=== PATIENT | female | born 1990 | race American Indian/Alaskan Native ===

== ENCOUNTER 2017-08-27 01:01 | Emergency (ER) | payer OTHER ==
[2017-08-27 01:08] VITALS: TEMP 98.5
[2017-08-27 01:09] VITALS: BMI 35.5
[2017-08-27] MEDS ORDERED: Magnesium Hydroxide Susp 30 ml UD PO STA (01:22)
--- NOTE | 2017-08-27 01:29 | ED PDOC ---
Arrival/HPI - General Chief Complaint: Abdominal Pain Time Seen by Provider: 08/27/17 01:08 Historian: Patient, Other (significant other) - History of Present Illness Narrative History of Present Illness (Text): you were treated in the ED today for having some constipation/difficulty having bowel movement with gas pains with nausea and episode of vomiting without bile/ blood otherwise without any nausea/vomiting/headache/dizziness/difficulty breathing/chest pain/abdomen pain/numbness/tingling/loss of limb function/pain with urination/vaginal bleeding or discharge. You refused sexual disease testing or treatment. Past Medical History - Provider Review Nursing Documentation Reviewed: Yes - Travel History Have you recently traveled outside [place] w/in the past 3 mons?: No - Psychiatric Hx Psychophysiologic Disorder: No Hx Substance Use: No - Surgical History Hx Tonsillectomy: Yes Family/Social History - Physician Review Nursing Documentation Reviewed: Yes Family/Social History: No Known Family HX Smoking Status: Light Smoker < 10 Cigarettes Daily Hx Alcohol Use: Yes Hx Substance Use: No Allergies/Home Meds Allergies/Adverse Reactions: Allergies No Known Allergies Allergy (Verified 02/11/16 11:27) Home Medications: Home Meds Medication Instructions Recorded Confirmed Loratadine [Claritin] 1 tab PO DAILY 02/11/16 02/11/16 Review of Systems - Review of Systems Constitutional: Normal Eyes: Normal ENT: Normal Respiratory: Normal Cardiovascular: Normal Gastrointestinal: Abdominal Pain, Constipation, Nausea, Vomiting Genitourinary Female: Normal Musculoskeletal: Normal Skin: Normal Neurological: Normal Endocrine: Normal Hemo/Lymphatic: Normal Psychiatric: Normal Physical Exam Vital Signs Reviewed: Yes Vital Signs Temp Pulse Resp BP Pulse Ox 08/27/17 01:08 98.5 F 86 18 123/86 100 Temperature: Afebrile Blood Pressure: Hypertensive Pulse: Regular Respiratory Rate: Normal Appearance: Positive for: Well-Appearing, Non-Toxic, Comfortable Pain Distress: None Mental Status: Positive for: Alert and Oriented X 3 - Systems Exam Head: Present: Atraumatic, Normocephalic Pupils: Present: PERRL Extroacular Muscles: Present: EOMI Conjunctiva: Present: Normal Ears: Present: Normal Mouth: Present: Moist Mucous Membranes Pharnyx: Present: Normal Nose (External): Present: Atraumatic Nose (Internal): Present: Normal Inspection Neck: Present: Normal Range of Motion Respiratory/Chest: Present: Clear to Auscultation, Good Air Exchange Cardiovascular: Present: Regular Rate and Rhythm Abdomen: No: Tenderness, Distention, Normal Bowel Sounds, Peritoneal Signs, Rebound, Guarding, McBurney's Point Tender, Rovsing's Sign Present, Hernias, Feeding Tubes, Ostomy Tubes, Mass/Organomegaly, Scars, Other Back: Present: Normal Inspection Upper Extremity: Present: Normal Inspection Lower Extremity: Present: Normal Inspection Neurological: Present: GCS=15, CN II-XII Intact, Speech Normal, Motor Func Grossly Intact Skin: Present: Warm, Normal Color Psychiatric: Present: Alert, Oriented x 3, Normal Insight, Normal Concentration Medical Decision Making ED Course and Treatment: you were treated in the ED today for having some constipation/difficulty having bowel movement with gas pains with nausea and episode of vomiting without bile/ blood otherwise without any nausea/vomiting/headache/dizziness/difficulty breathing/chest pain/abdomen pain/numbness/tingling/loss of limb function/pain with urination/vaginal bleeding or discharge. You refused sexual disease testing or treatment. You were otherwise breathing easily, pink moist lips, smiling and laughing with your significant other, good strength/sensation, alert /oriented, walking easily, clear lungs, no abdomen tenderness on multiple repeat examinations, you refused pelvic and rectal exam at this time and cautioned for complications, no fever temp 98.5, stable heart rate 86, stable breathing rate 18, excellent oxygen level 100% room air, elevated blood pressure 123//86 which we recommend repeat in 2-3 days primary care office to determine further treatment, urine test negative, ECG, milk of magnesia, colace stool softner, lactulose stool softner, zofran anti-nausea, observation done in the ED with improvement, had a long discussion regarding further lab tests/observation in the emergency department which you refused at this time and cautioned to monitor your symptoms for any worsening/complications , counselled to drink lots of fluids and advance diet as tolerated and thus discharged home with significant other. 1. Recommend colace as directed for stool softener. 2. Recommend zofran as directed for nausea control. 3. Recommend follow-up primary care 2-3 days to review symptoms, referral to gastroenterology clinic to review your symptoms. 4. If any worsening pain, fever , chills, nausea, vomiting, difficulty breathing, numbness, loss of limb function, pain with urination or any medical condition then return to the ED. 08/27/17 01:33 08/27/17 02:09 Reassessment Condition: Re-examined, Improved - Medication Orders Current Medication Orders: Discontinued Medications Docusate Sodium (Colace) 100 mg PO STAT STA Stop: 08/27/17 01:23 Last Admin: 08/27/17 01:32 Dose: 100 mg Last Bowel Movement Document 08/27/17 01:32 RG (Rec: 08/27/17 01:32 RG [id number]) Last Bowel Movement Last Bowel Movement 08/26/17 Lactulose (Enulose) 20 gm PO ONCE STA Stop: 08/27/17 01:30 Last Admin: 08/27/17 01:35 Dose: 20 gm Magnesium Hydroxide (Milk Of Magnesia) 30 ml PO STAT STA Stop: 08/27/17 01:23 Last Admin: 08/27/17 01:32 Dose: 30 ml Ondansetron HCl (Zofran Odt) 4 mg PO STAT STA Stop: 08/27/17 01:23 Last Admin: 08/27/17 01:32 Dose: 4 mg Disposition/Present on Arrival - Present on Arrival Any Indicators Present on Arrival: No History of DVT/PE: No History of Uncontrolled Diabetes: No Urinary Catheter: No History of Decub. Ulcer: No History Surgical Site Infection Following: None - Disposition Have Diagnosis and Disposition been Completed?: Yes Diagnosis: Gas pain, Constipation Disposition: HOME/ ROUTINE Disposition Time: 02:11 Patient Plan: Discharge Condition: IMPROVED Discharge Instructions (ExitCare): Constipation, Adult (DC), Gas and Bloating Additional Instructions: you were treated in the ED today for having some constipation/difficulty having bowel movement with gas pains with nausea and episode of vomiting without bile/ blood otherwise without any nausea/vomiting/headache/dizziness/difficulty breathing/chest pain/abdomen pain/numbness/tingling/loss of limb function/pain with urination/vaginal bleeding or discharge. You refused sexual disease testing or treatment. You were otherwise breathing easily, pink moist lips, smiling and laughing with your significant other, good strength/sensation, alert /oriented, walking easily, clear lungs, no abdomen tenderness on multiple repeat examinations, you refused pelvic and rectal exam at this time and cautioned for complications, no fever temp 98.5, stable heart rate 86, stable breathing rate 18, excellent oxygen level 100% room air, elevated blood pressure 123//86 which we recommend repeat in 2-3 days primary care office to determine further treatment, urine test negative, ECG, milk of magnesia, colace stool softner, lactulose stool softner, zofran anti-nausea, observation done in the ED with improvement, had a long discussion regarding further lab tests/observation/care in the emergency department which you refused at this time and cautioned to monitor your symptoms for any worsening/ complications, counselled to drink lots of fluids and advance diet as tolerated and thus discharged home with significant other. 1. Recommend colace as directed for stool softener. 2. Recommend zofran as directed for nausea control. 3. Recommend follow-up primary care 2-3 days to review symptoms, referral to gastroenterology clinic to review your symptoms. 4. If any worsening pain, fever, chills, nausea, vomiting, difficulty breathing, numbness , loss of limb function, pain with urination or any medical condition then return to the ED. Prescriptions: Docusate Sodium [Colace] 100 mg PO DAILY 10 Days #20 capsule Ondansetron ODT [Zofran ODT] 4 mg PO Q8 PRN 5 Days #20 odt PRN Reason: Nausea/Vomiting Forms: [facility] ([place]), WORK NOTE
[2017-08-27 02:25] VITALS: BP 121/72; PULSE 60; RESP 20; O2SAT 98
== END 2017-08-27 02:20 | disposition home or self-care (01) ==
LOC: ED 01:01
DX: K59.00 Constipation, unspecified (principal); R14.1 Gas pain